=== PATIENT | female | born 1970 | race Caucasian/White ===

== ENCOUNTER 2018-06-16 08:07 | Emergency (ER) | payer OTHER, SELFPAY ==
[2018-06-16 08:09] VITALS: BP 163/82; PULSE 76; RESP 18; TEMP 36.8; O2SAT 99; BMI 40.1
--- NOTE | 2018-06-16 08:11 | EKG12_ITS ---
Test Reason : ABD PAIN Blood Pressure : / mmHG Vent. Rate : 084 BPM Atrial Rate : 084 BPM P-R Int : 150 ms QRS Dur : 092 ms QT Int : 384 ms P-R-T Axes : 069 069 024 degrees QTc Int : 453 ms Normal sinus rhythm Nonspecific ST abnormality Abnormal ECG Confirmed by NELLIE JACINTO, REBEKA ([id number]), newspaper photo editor GHANSHYAM ROE ([id number]) on 06/18/2018 3:22:26 PM Referred By: SHAYLEE Confirmed By:REBEKA BALLARD MD
--- NOTE | 2018-06-16 08:15 | RAD_ITS ---
STUDY: X-RAY CHEST REASON FOR EXAM: Female, 48 years old. Chest pain TECHNIQUE: Single AP portable view of the chest. COMPARISON: 02/21/2016 FINDINGS: The lungs are clear and expanded. There is no demonstrated pleural abnormality. Normal size heart. Normal mediastinum and nav. Normal visualized pulmonary arteries. Normal visualized aortic arch and descending thoracic aorta. Normal visualized thoracic spine. Normal visualized ribs, clavicles, and shoulders. There is no demonstrated abnormality of the visualized soft tissue structures of the upper abdomen. RAD/Chest 1 View (Portable) IMPRESSION: Normal x-ray examination of the chest. Electronically Signed: Jake Corbin DO at 9:08 EST Tel , Service support ,
[2018-06-16 08:37] LABS: Absolute Lymphocyte Count 1.85 X10^3/ul (0.83-4.51); Absolute Neutrophil Count 5.2 X10^3/uL (2.0-7.7); Basophil# 0.03 X10^3/uL; Basophil% 0.4 % (0-1); Eosinophil# 0.16 X10^3/uL; Hematocrit 43.5 % (37-47); Hemoglobin 14.3 g/dl (12.0-15.0); Lymphocyte # 1.85 X10^3/ul (4.0); Lymphocyte % 23.4 % (19-41); Mean Corp Hgb Conc 32.9 g/gl (32-36); Mean Corpuscular Hgb 28.4 pg (27.0-32.0); Mean Corpuscular Volume 86.3 fL (81-99); Mean Platelet Vol. 10.3 fl (6.2-12.0); Monocyte# 0.66 X10^3/uL; Monocyte% 8.3 % (0-10); Neutrophil % 65.6 % (47-70); POSITIVE COUNT NO; POSITIVE DIFFERENTIAL NO; POSITIVE MORPHOLOGY NO; Platelet Count 224 K/mm3 (150-450); RBC Distribution Width CV 13.8 % (11.6-14.6); RBC Distribution Width SD 43.3 fl (35.1-43.9); Red Blood Count 5.04 M/mm3 (4.2-5.4); White Blood Count 7.9 K/mm3 (4.4-11.0)
--- NOTE | 2018-06-16 08:48 | ED.VISSUMM ---
- ER Visit Summary Date of Service: 06/16/18 Chief Complaint: Dizzy History of Present Illness: The patient is a 48 F with dizziness that she describes as a lightheadedness. Her lightheadedness is intermittent and lasts for several seconds. This has been going on for days, but was worse today. She has also had heartburn for 2 weeks. She has pain in her left chest and throat. No fevers. No focal weakness or numbness. No facial droop, speech changes, or vision changes. No other GI symptoms. No other respiratory symptoms. History of diabetes and hypothyroidism. No history of heart disease, PE, or dissection. No history of stroke, malignancy. Physical Examination: Blood pressure 163/82. Otherwise vitals normal. Afebrile. Alert and oriented. Uncomfortable but not toxic or in distress. Head and neck grossly atraumatic and normal. HEENT exam unremarkable. Heart regular rate and rhythm. Lungs clear. Abdomen soft and nontender. Skin appears normal. Extremities show normal inspection. Neurovascular intact x4, symmetric. Cranial nerve testing grossly intact. Normal strength and sensation. Test Results: EKG shows sinus rhythm at a rate of 84. Very minor nonspecific ST changes. No sign of acute ischemia or infarction pattern. Laboratory studies and chest x-ray pending. Emergency Department Course and Treatment: Placed on a monitor, although I have low suspicion for ACS, PE, or dissection. She was not treated with aspirin. I suspect she may have some GI component. She was treated with a GI cocktail. Labs are pending. We will also check a chest x-ray for cardiac and pulmonary evaluation. There is nothing to suggest stroke or intracranial pathology at this point. I do not believe that CT risks outweigh the potential benefits. CBC normal. Glucose 146. Hepatic unremarkable. Lipase normal. Troponin normal. test negative. Chest x-ray unremarkable. On reevaluation, patient did have some improvement. Her orthostatics were negative. Heart score is a 3. PERC negative. Delta troponin was done. I believe the patient is appropriate for outpatient follow-up. She seems to be improving. Her workup here is reassuring. Low risk. Patient agreed. Treatment Plan: Increase omeprazole to twice a day and follow-up with primary care Disposition: Discharged Impression: 1. Dizziness . Epigastric pain This note was generated with [employer] software. It may contain incorrect words, spelling, and punctuation that were not noted in review of the chart prior to signing ED Disposition - Plan for ED Patient: Chief Complaint: Dizziness Referrals: Ever Dee MD [Primary Care Provider] -
[2018-06-16 09:10] LABS: ALB/GLOB Ratio 1.3 RATIO (0.9-2.4); AST(SGOT) 13 U/L (15-37); Alanine Aminotransfer ALT/SGPT 28 U/L (13-56); Albumin, Serum 4.3 g/dL (3.2-5.0); Alkaline Phosphatase 65 U/L (45-117); Anion Gap 10 (5-15); BUN 11 mg/dL (7-18); BUN/Creat Ratio 15.3 RATIO (10-20); Calcium,Total 8.8 mg/dL (8.5-10.1); Chloride 105 mmol/L (98-107); Creatinine, Serum 0.72 mg/dL (0.55-1.02); EST Glomerular Filtration Rate 93 mL/min (>60); Est Glom Filt Rate - Afr Amer 113 mL/min (>60); Estimated Creatinine Clearance 87.85 ml/min; Globulin 3.4 g/dL (2.2-4.2); Glucose 146 mg/dL (74-106); Lipase 75 U/L (73-393); Potassium 3.7 mmol/L (3.5-5.1); Protein, Total 7.7 g/dL (6.4-8.2); Sodium Level 140 mmol/L (136-145)
[2018-06-16 09:18] LABS: Pregnancy, Serum, hCG Quali. NEGATIVE Negative (0-9 Nonpreg)
[2018-06-16] MEDS: Mag Hydrox/Al Hydrox/Simeth 30 ML UDC PO (09:34)
[2018-06-16 09:35] VITALS: BP 136/99; BP 142/73; BP 143/97; PULSE 72; PULSE 75; PULSE 80
[2018-06-16 10:39] VITALS: BP 127/78; PULSE 65; RESP 18; O2SAT 99
[2018-06-16 12:08] VITALS: BP 124/90; PULSE 65; RESP 18; O2SAT 98
--- NOTE | 2018-06-16 12:20 | ED.DEP ---
ED Disposition - Plan for ED Patient: Chief Complaint: Dizziness Instructions: ED Dizziness [facility] Referrals: Ever Dee MD [Primary Care Provider] -
[2018-06-16 12:28] VITALS: BP 104/66; PULSE 65; RESP 18; O2SAT 99
== END 2018-06-16 12:28 | disposition home or self-care (01) ==
LOC: ED 08:35
PROVIDERS: Emergency Provider Emergency Medicine; Family Provider Family Medicine; PCP Family Medicine
DX: R42 Dizziness and giddiness (principal); R10.13 Epigastric pain; E11.9 Type 2 diabetes mellitus without complications; E03.9 Hypothyroidism, unspecified; Z90.49 Acquired absence of other specified parts of digestive tract; Z79.899 Other long term (current) drug therapy
CPT/HCPCS: 36415; 71045; 80053; 83690; 84484; 84703; 85025; 93005; 99284; A4216

== ENCOUNTER → 2018-11-10 16:47 | Outpatient (CLI) | payer OTHER, SELFPAY ==
[2018-11-10 18:09] LABS: Thyroid Stim Hormone (TSH) 2.14 uIU/mL (0.358-3.74)
== END ==
PROVIDERS: Family Provider Family Medicine; PCP Family Medicine; Referring Provider Family Medicine; Visit Provider Nurse Practitioner Adult Health
DX: E03.9 Hypothyroidism, unspecified (principal); R73.01 Impaired fasting glucose
CPT/HCPCS: 36415; 84443

== ENCOUNTER → 2019-07-15 16:52 | Outpatient (CLI) | payer OTHER, SELFPAY ==
--- NOTE | 2019-07-15 16:55 | BI_ITS ---
MAMMOGRAPHY - BILATERAL SCREENING REASON FOR EXAM: Female, 49 years old. Routine annual screening examination. PERTINENT HISTORY: Non-contributory. TECHNIQUE: Digital bilateral breast mariah (3D mammographic acquisition) in the CC and MLO projections. 2-D mediolateral oblique (MLO) and craniocaudad (CC) views of both breasts were obtained. CAD: Full Field Digital Mammography with Computer Added Detection was performed. COMPARISON: Comparison is made with prior study dated October 07, 2016 and January 25, 2015. FINDINGS: Breast Composition: The breasts are almost entirely fatty. There are no dominant masses or suspicious calcifications. No other significant abnormalities are identified. There has been no significant change since the prior study. BI/SCREEN MAMM (CAD) W/MARIAH BILAT IMPRESSION: Stable bilateral screening mammogram. Yearly follow-up mammogram recommended. (A) ASSESSMENT CATEGORY: BIRADS Category 1: Negative. A letter regarding these results will be sent to the patient by the facility within 30 days. Approximately 10% of breast cancers are not detected by mammography. A normal mammogram should not delay biopsy of a clinically suspicious abnormality. [id number] Electronically Signed: Marcelino Obando, at 8:32 EST , Service support ,
== END ==
PROVIDERS: Family Provider Family Medicine; PCP Family Medicine; Referring Provider Obstetrics & Gynecology; Visit Provider Obstetrics & Gynecology
DX: Z12.31 Encounter for screening mammogram for malignant neoplasm of breast (principal)
CPT/HCPCS: 77063; 77067

== ENCOUNTER → 2019-08-05 | Outpatient (CLI) | payer OTHER, SELFPAY ==
[2019-08-10 15:44] LABS: HPV Reflexed? NOT INDICATED
== END | disposition home or self-care (01) ==
LOC: LABSPEC 17:03
PROVIDERS: Family Provider Family Medicine; PCP Family Medicine; Referring Provider Obstetrics & Gynecology; Visit Provider Obstetrics & Gynecology
DX: Z12.4 Encounter for screening for malignant neoplasm of cervix (principal)
CPT/HCPCS: 88175; G0145

== ENCOUNTER → 2020-02-29 08:29 | Outpatient (CLI) | payer OTHER, SELFPAY ==
[2020-02-29 10:17] LABS: ALB/GLOB Ratio 1.3 RATIO (0.9-2.4); AST(SGOT) 5 U/L (15-37); Alanine Aminotransfer ALT/SGPT 17 U/L (13-56); Albumin, Serum 3.7 g/dL (3.2-5.0); Alkaline Phosphatase 61 U/L (45-117); Anion Gap 5 (5-15); BUN 11 mg/dL (7-18); BUN/Creat Ratio 15.5 RATIO (10-20); Calcium,Total 7.9 mg/dL (8.5-10.1); Chloride 105 mmol/L (98-107); Cholesterol 137 mg/dL (200); Creatinine, Serum 0.71 mg/dL (0.55-1.02); EST Glomerular Filtration Rate 94 mL/min (>60); Est Glom Filt Rate - Afr Amer 113 mL/min (>60); Globulin 2.8 g/dL (2.2-4.2); Glucose 139 mg/dL (74-106); High Density Lipoprotein 39 mg/dL; Potassium 4.3 mmol/L (3.5-5.1); Protein, Total 6.5 g/dL (6.4-8.2); Sodium Level 138 mmol/L (136-145); T4 Free Direct 1.13 ng/dL (0.76-1.46); Thyroid Stim Hormone (TSH) 1.77 uIU/mL (0.358-3.74); Triglycerides 82 mg/dL; Very Low Density Lipoprotein 16 mg/dL (5-40)
== END ==
PROVIDERS: PCP Family Medicine; Referring Provider Family Medicine; Visit Provider Family Medicine
DX: R73.01 Impaired fasting glucose (principal); E03.9 Hypothyroidism, unspecified
CPT/HCPCS: 36415; 80053; 80061; 84439; 84443

== ENCOUNTER → 2021-06-08 09:20 | Outpatient (CLI) | payer OTHER, SELFPAY ==
[2021-06-08 12:02] LABS: Absolute Lymphocyte Count 1.53 X10^3/uL (0.83-4.51); Absolute Neutrophil Count 3.9 X10^3/uL (2.0-7.7); Basophil# 0.04 X10^3/uL; Basophil% 0.6 % (0-1); Eosinophil# 0.42 X10^3/uL; Eosinophils% 6.5 % (0-5); Hematocrit 39.6 % (37-47); Hemoglobin 12.8 g/dL (12.0-15.0); Lymphocyte # 1.53 X10^3/ul (0.83-4.51); Lymphocyte % 23.8 % (19-41); Mean Corp Hgb Conc 32.3 g/dL (32-36); Mean Corpuscular Hgb 27.9 pg (27.0-32.0); Mean Corpuscular Volume 86.5 fL (81-99); Monocyte# 0.52 X10^3/uL; Monocyte% 8.1 % (0-10); NRBC Flagged by Analyzer 0 % (0-5); Neutrophil # 3.88 X10^3/uL (2.7-7.7); Neutrophil % 60.5 % (47-70); Platelet Count 205 K/mm3 (150-450); RBC Distribution Width CV 14.1 % (11.6-14.6); Red Blood Count 4.58 M/mm3 (4.2-5.4); White Blood Count 6.4 K/mm3 (4.4-11.0)
[2021-06-08 12:26] LABS: AST(SGOT) 14 U/L (15-37); Alanine Aminotransfer ALT/SGPT 28 U/L (13-56); Albumin, Serum 3.4 g/dL (3.2-5.0); Alkaline Phosphatase 59 U/L (45-117); Anion Gap 6 (5-15); BUN 14 mg/dL (7-18); BUN/Creat Ratio 20.4 RATIO (10-20); Calcium,Total 8.1 mg/dL (8.5-10.1); Chloride 106 mmol/L (98-107); Cholesterol 145 mg/dL (200); Creatinine, Serum 0.69 mg/dL (0.55-1.02); EST Glomerular Filtration Rate 97 mL/min (>60); Est Glom Filt Rate - Afr Amer 117 mL/min (>60); Globulin 3.3 g/dL (2.2-4.2); Glucose 190 mg/dL (74-106); High Density Lipoprotein 39 mg/dL; Protein, Total 6.7 g/dL (6.4-8.2); Sodium Level 138 mmol/L (136-145); T4 Total, Thyroxin 9.2 ug/dL (4.8-13.9); Thyroid Stim Hormone (TSH) 2.06 uIU/mL (0.358-3.74); Triglycerides 68 mg/dL; Very Low Density Lipoprotein 14 mg/dL (5-40)
== END ==
PROVIDERS: PCP Family Medicine; Referring Provider Family Medicine; Visit Provider Registered Nurse
DX: E03.9 Hypothyroidism, unspecified (principal); E11.9 Type 2 diabetes mellitus without complications
CPT/HCPCS: 36415; 80053; 80061; 83036; 84436; 84443; 85025

== ENCOUNTER 2022-04-29 16:02 | Outpatient (RCR) | payer OTHER, SELFPAY | END 2022-05-10 23:59 | LOC: DC 16:02 | PROVIDERS: PCP Nurse Practitioner Family; Referring Provider Nurse Practitioner Family; Visit Provider Nurse Practitioner Family | DX: E11.9 Type 2 diabetes mellitus without complications (principal); E66.9 Obesity, unspecified; Z68.41 Body mass index [BMI] 40.0-44.9, adult | CPT/HCPCS: G0108 ==

== ENCOUNTER → 2022-10-15 | Outpatient (CLI) | payer OTHER, SELFPAY ==
[2022-10-15 12:47] LABS: Microalbumin,Random Urine 9.6 mg/L (NO RANGE EST.); Microalbumin:Creatinine Ratio 5.8 mg/g CRE (<30 mg/g CRE)
[2022-10-15 13:14] LABS: Vitamin D,25 Hydroxy 15.1 ng/mL
[2022-10-15 13:35] LABS: ALB/GLOB Ratio 1.2 RATIO (0.9-2.4); AST(SGOT) 9 U/L (15-37); Alanine Aminotransfer ALT/SGPT 18 U/L (13-56); Alkaline Phosphatase 70 U/L (45-117); Anion Gap 10 (5-15); BUN 11 mg/dL (7-18); BUN/Creat Ratio 15.2 RATIO (10-20); Calcium,Total 8.8 mg/dL (8.5-10.1); Chloride 105 mmol/L (98-107); Cholesterol 162 mg/dL (200); Creatinine, Serum 0.72 mg/dL (0.55-1.02); EST Glomerular Filtration Rate 90 mL/min (>60); Est Glom Filt Rate - Afr Amer 109 mL/min (>60); Globulin 3.4 g/dL (2.2-4.2); Glucose 217 mg/dL (74-106); High Density Lipoprotein 44 mg/dL; Protein, Total 7.4 g/dL (6.4-8.2); Sodium Level 139 mmol/L (136-145); Thyroid Stim Hormone (TSH) 5.14 uIU/mL (0.358-3.74); Triglycerides 102 mg/dL; Very Low Density Lipoprotein 20 mg/dL (5-40)
[2022-10-23 14:19] LABS: HPV APTIMA, High Risk Negative (Negative)
== END | disposition home or self-care (01) ==
PROVIDERS: Student in an Organized Health Care Education/Training Program; PCP Nurse Practitioner Family; Referring Provider Nurse Practitioner Family; Visit Provider Nurse Practitioner Family
DX: Z12.4 Encounter for screening for malignant neoplasm of cervix (principal); E11.9 Type 2 diabetes mellitus without complications
CPT/HCPCS: 36415; 80053; 80061; 82043; 82306; 82570; 84443; 87624; 88175; G0145

== ENCOUNTER → 2022-10-29 | Outpatient (CLI) | payer OTHER, SELFPAY ==
--- NOTE | 2022-10-29 07:20 | BI_ITS ---
MAMMOGRAPHY - BILATERAL SCREENING REASON FOR EXAM: Female, 52 years old. Routine annual screening examination. PERTINENT HISTORY: Non-contributory. TECHNIQUE: Digital bilateral breast mariah (3D mammographic acquisition) in the CC and MLO projections. 2-D mediolateral oblique (MLO) and craniocaudad (CC) views of both breasts were obtained. CAD: Full Field Digital Mammography with Computer Added Detection was performed. COMPARISON: Comparison is made with prior study dated July 15, 2019 and October 07, 2016. FINDINGS: Breast Composition: The breasts are almost entirely fatty. There are no dominant masses or suspicious calcifications. Stable small benign-appearing left axillary lymph nodes. No other significant abnormalities are identified. There has been no significant change since the prior study. BI/SCRN MAMM (CAD)W/MARIAH BILAT IMPRESSION: Stable bilateral screening mammogram. Yearly follow-up mammogram recommended. (A) ASSESSMENT CATEGORY: BIRADS Category 2: Benign. A letter regarding these results will be sent to the patient by the facility within 30 days. Approximately 10% of breast cancers are not detected by mammography. A normal mammogram should not delay biopsy of a clinically suspicious abnormality. [id number] Electronically Signed: Marcelino Obando MD at 8:40 EDT ,
== END | disposition home or self-care (01) ==
LOC: OPBI 07:18
PROVIDERS: PCP Nurse Practitioner Family; Referring Provider Student in an Organized Health Care Education/Training Program; Visit Provider Student in an Organized Health Care Education/Training Program
DX: Z12.31 Encounter for screening mammogram for malignant neoplasm of breast (principal)
CPT/HCPCS: 77063; 77067

== ENCOUNTER → 2023-01-16 | Outpatient (CLI) | payer OTHER, SELFPAY ==
[2023-01-16 14:37] LABS: Hemoglobin A1c 8.6 % (3.8-5.6)
[2023-01-16 14:57] LABS: T4 Free Direct 1.39 ng/dL (0.76-1.46); Thyroid Stim Hormone (TSH) 1.04 uIU/mL (0.358-3.74)
== END | disposition home or self-care (01) ==
LOC: LAB 13:24
PROVIDERS: PCP Nurse Practitioner Family; Referring Provider Nurse Practitioner Family; Visit Provider Nurse Practitioner Family
DX: E11.9 Type 2 diabetes mellitus without complications (principal); E03.9 Hypothyroidism, unspecified
CPT/HCPCS: 36415; 83036; 84439; 84443

== ENCOUNTER → 2023-03-21 | Outpatient (CLI) | payer OTHER, SELFPAY ==
[2023-03-27 17:07] LABS: HPV APTIMA, High Risk Negative (Negative)
== END | disposition home or self-care (01) ==
PROVIDERS: PCP Nurse Practitioner Family; Visit Provider Student in an Organized Health Care Education/Training Program
DX: Z12.4 Encounter for screening for malignant neoplasm of cervix (principal)
CPT/HCPCS: 87624; 88175; G0145

== ENCOUNTER → 2023-04-24 | Outpatient (CLI) | payer OTHER, SELFPAY ==
[2023-04-24 14:41] LABS: T4 Free Direct 1.32 ng/dL (0.76-1.46); Thyroid Stim Hormone (TSH) 1.98 uIU/mL (0.358-3.74)
== END | disposition home or self-care (01) ==
PROVIDERS: PCP Registered Nurse; Referring Provider Nurse Practitioner Family; Visit Provider Nurse Practitioner Family
DX: E03.9 Hypothyroidism, unspecified (principal)
CPT/HCPCS: 84439; 84443

== ENCOUNTER 2024-02-18 07:42 | Day surgery (SDC) | payer OTHER, SELFPAY ==
[2024-02-18] VITALS (8 sets, daily range): BP systolic 114–142; BP diastolic 67–77; PULSE 64–72; RESP 16–18; TEMP 35.9–36.8; O2SAT 95–100; BMI 35.2
--- NOTE | 2024-02-18 07:51 | HP.PCM_ITS ---
[facility] - General General Date of Service: 02/18/24 [facility] Narrative MARCI AGUIRRE, is a 54 F who presents for screening colonoscopy. Patient never had previous colonoscopy. Patient denies any family history of colon cancer. Patient denies any chronic abdominal pain/nausea/vomiting/reflux. Patient has bowel movements daily denies any blood. [facility] Medical History (Updated 02/13/24 @ 13:53 by Chela Butler) Gastric reflux Non-smoker Vaginal yeast infection Sinus infection Cheek mass Hypothyroid Home Medications ?Medication ?Instructions ?Recorded ?Last Taken ?Type blood-glucose meter (OneTouch #1 ea 01/16/23 Unknown Rx Verio Flex Meter) lancets (Accu-Chek Softclix #100 ea 03/19/23 Unknown Rx Lancets) levothyroxine 112 mcg tablet 112 mcg PO DAILY #90 tabs 07/02/23 Unknown Rx blood sugar diagnostic (OneTouch #100 ea 07/31/23 Unknown Rx Verio test strips) losartan 50 mg tablet 50 mg PO DAILY #90 tabs 07/31/23 Unknown Rx tirzepatide 10 mg/0.5 mL 10 mg (0.5 mL) subcut QWEEK #2 mL 09/16/23 02/01/24 Rx subcutaneous pen injector (Christiano) amoxicillin 500 mg capsule 500 mg PO TID 02/17/24 Unknown History Allergy/AdvReac Type Severity Reaction Status Date / Time No Known Allergies Allergy Verified 02/13/24 13:44 Family History Father Diabetes Other Pancreatic cancer Surgical History History of 2 sections History of cholecystectomy Social History (Updated 01/08/24 @ 10:53 by Jannie Ferreira) household members: spouse current occupational status: employed Smoking Status: Never smoker alcohol intake: never substance use type: does not use additional social history: does not take aspirin does take ibuprofen as needed Past Medical/Surgical History Planned Operation Planned Operative Procedure(s): COLONOSCOPY Previous Hospitalizations/Surgeries HX Hospitalizations: No Any Problems With Anesthesia: No You/Your Family Experience Fever (Hyperthermia) With Anes: No Cholinesterase deficiency: No Cardiovascular Hx of Irregular Heartbeat and/or Afib: No Hx Heart Attack: No Hx Congestive Heart Failure: No Hx Hypertension: Yes Hx Internal Defibrillator: No Hx Pacemaker: No Respiratory Hx Chronic Obstructive Pulmonary Disease (COPD): No Hx Asthma: No Hx Emphysema: No Hx Sleep Apnea: No Hx Respiratory Tract Infection/Cold (presently): No Do You Snore Loudly (louder than talking or can be heard): No Do You Often Feel Tired/ Fatigued/ Sleepy Dring Daytime?: No Has Anyone Observed You Stop Breathing During Sleep?: No Result (for STOP score): Negative Smoking Status: Never smoker Gastrointestinal Hx Ulcer: No Neurological Hx Seizures: No Hx Multiple Sclerosis: No Hx Parkinson's Disease: No Hx Head/Neck Injury: No Hx Headaches: No Hx Back Injury/Pain: No Does patient have nerve stimulator: No Reproduction : No Psycho/Social Hx Anxiety: No Hx Depression: No Allergies No Known Allergies Allergy (Verified 02/13/24 13:44) Discharge Is Pt Admitted From a [facility], or a Senior Living: No Who Could Help: After D/C, Where Do you Plan to Go: Return Home Physical Exam Const alert, oriented x3 and no apparent distress HEENT normocephalic and head/scalp atraumatic Resp normal respiratory effort Cardio regular rate GI soft to palpation and non-tender; Negative for non-distended Palpation: Negative for guarding Extremity no clubbing, cyanosis or edema Skin no rashes or lesions noted Neuro CN's II-XII intact bilaterally Psych mental status grossly normal Assessment & Plan Assessment/Plan (1) Encounter for screening for malignant neoplasm of colon: Surgery Risks - Colonoscopy I discussed with the patient the risks of the procedure: Yes Risks Include but are not Limited To: Risks include but are not limited to: Bleeding, perforation requiring further surgery, inability to complete colonoscopy requiring barium enema.
[2024-02-18 08:22] LABS: Internal QC Validated? YES +Cl - CLEAR BKGD; Pregnancy, Urine Negative Negative; Record Kit Lot#,Urine Preg HCG0000772476
[2024-02-18] MEDS: Lactated Ringers 1,000 ML 15 ML IV (08:27)
--- NOTE | 2024-02-18 08:38 | PRE.ANES_ITS ---
ASA Classification* ASA Classification ASA Classification: 2 Assessment & Plan Anesthesia* Anesthesia Assessment Anesthesia Assessment: Discussed sedation and/or anesthesia options, risks, benefits, and alternatives with patient/parents/legal guardian/POA. Questions invited. The patient/parents/legal guardian/POA seems to understand and agrees to proceed with anesthesia plan. Reviewed the physical assessment, medical history, allergy history and patient home medications list prior to surgery/procedure/anesthetic and documented any changes. Performed airway and anesthesia risk assessments. Anesthesia Type Anesthesia Type: MAC (see written pre anesthesia record for full assessment) Anesthesia Focused Assessment* Temperature: 98.2 F Pulse Rate: 72 Blood Pressure: 142/72 Respiratory Rate: 18 Pulse Ox: 100 Airway Assessment Mouth opens: >3 cm Mallampati Score: II Focused Labs Anesthesia Preop lab: CBC WBC 6.4 K/mm3 (4.4-11.0) 06/08/21 09:24 RBC 4.58 M/mm3 (4.2-5.4) 06/08/21 09:24 Hgb 12.8 g/dL (12.0-15.0) 06/08/21 09:24 Hct 39.6 % (37-47) 06/08/21 09:24 Plt Count 205 K/mm3 (150-450) 06/08/21 09:24 CHEMISTRY Potassium 4.0 mmol/L (3.5-5.1) 10/15/22 12:08 Sodium 139 mmol/L (136-145) 10/15/22 12:08 BUN 11 mg/dL (7-18) 10/15/22 12:08 Creatinine 0.72 mg/dL (0.55-1.02) 10/15/22 12:08 Glucose 217 mg/dL (74-106) H 10/15/22 12:08 TSH 1.98 uIU/mL (0.358-3.74) 04/24/23 12:53 COAG Urine Test Negative Negative 02/18/24 08:15 Pre-Assessment Diagnosis/Proposed Procedure Planned Operative Procedure(s): COLONOSCOPY Anesthesia History 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 When Was Last Pacemaker Check QUESTION #4 FULL TEXT: You/Your Family Experience fever (hyperthermia) with Anesthesia Last Oral Intake Last Oral intake: Last Oral Intake NPO since 05:00 02/18/24 08:22 Meds taken in AM with sips of Yes 02/18/24 08:22 water? Meds patient instructed to take am of surgery PONV PONV - glass mold repairer: PONV - glass mold repairer Female Yes 02/13/24 13:48 HX of Motion Sickness No 02/13/24 13:48 HX of N/V After Surgery Yes 02/13/24 13:48 Non-Smoker No 02/13/24 13:48 Duration of Surgery greater No 02/13/24 13:48 than 60 minutes Number of Risk Factors 2 02/13/24 13:48 PONV Score Moderate Risk 02/13/24 13:48 Height & Weight Height & Weight: Anesthesia: Height & Weight Height 5 ft 4 in 02/18/24 08:22 Weight: 93 kg 02/18/24 08:22 Body Mass Index (BMI) 35.2 02/18/24 08:22 Respiratory Assessment Respiratory Assessment - glass mold repairer: Respiratory Tract Infection Hx - glass mold repairer Hx Respiratory Tract Infection No 02/18/24 07:52 STOP Sleep Apnea STOP Sleep Apnea - glass mold repairer: STOP Sleep Apnea - glass mold repairer Hx Hypertension Yes 02/18/24 07:52 Hx Sleep Apnea No 02/18/24 07:52 CPAP BIPAP Do you snore loudly (louder No 02/18/24 07:52 than talking or can be heard Do you often feel tired/ No 02/18/24 07:52 fatigued/ sleepy during daytime? Has anyone observed you stop No 02/18/24 07:52 breathing during sleep? STOP Results Negative 02/18/24 07:52 QUESTION #5 FULL TEXT : Do you snore loudly (louder than talking or can be heard through closed doors)? 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 Specify any problems Hx of Preganancy in last 3 No 02/13/24 13:48 Months Nurse Filling Out Transfusion VLEHMAN 02/13/24 13:48 & Questions: Date: 02/13/24 02/13/24 13:48 Time: 13:54 02/13/24 13:48 Patient unable to answer at this time (ie. confused, unrespo /Reproduction History /Reproductive History - glass mold repairer: /Reproductive Hx- glass mold repairer Hx Now No 02/18/24 07:52 Gestational Age (in weeks): EDC: Hx Hx Para Hx Section SAB No 02/13/24 13:48 Active Medications Active Medications: Current Medications Generic Name Dose Route Start Last Admin Trade Name Freq PRN Reason Stop Dose Admin Lactated Ringer's 1,000 mls @ 15 mls/hr 02/18/24 08:00 02/18/24 08:27 IV 15 mls/hr .Q48H ARTIS Administration PFSH Medical History Gastric reflux Non-smoker Vaginal yeast infection Sinus infection Cheek mass Hypothyroid Home Medications ?Medication ?Instructions ?Recorded ?Last Taken ?Type blood-glucose meter (OneTouch #1 ea 01/16/23 Unknown Rx Verio Flex Meter) lancets (Accu-Chek Softclix #100 ea 03/19/23 Unknown Rx Lancets) levothyroxine 112 mcg tablet 112 mcg PO DAILY #90 tabs 07/02/23 02/18/24 05:00 Rx blood sugar diagnostic (OneTouch #100 ea 07/31/23 Unknown Rx Verio test strips) losartan 50 mg tablet 50 mg PO DAILY #90 tabs 07/31/23 02/18/24 05:00 Rx tirzepatide 10 mg/0.5 mL 10 mg (0.5 mL) subcut QWEEK #2 mL 09/16/23 02/01/24 Rx subcutaneous pen injector (Mounamarjitro) amoxicillin 500 mg capsule 500 mg PO TID 02/17/24 Unknown History Allergy/AdvReac Type Severity Reaction Status Date / Time No Known Allergies Allergy Verified 02/18/24 08:21 Family History Father Diabetes Other Pancreatic cancer Surgical History History of 2 sections History of cholecystectomy Social History household members: spouse current occupational status: employed Smoking Status: Never smoker alcohol intake: never substance use type: does not use additional social history: does not take aspirin does take ibuprofen as needed Review of Systems (Anesthesia) ROS Narrative System reviewed and no additional complaints, except as documented.
[2024-02-18 09:05] LABS: ALB/GLOB Ratio 1.2 RATIO (0.9-2.4); AST(SGOT) 16 U/L (15-37); Alanine Aminotransfer ALT/SGPT 30 U/L (13-56); Albumin, Serum 3.9 g/dL (3.2-5.0); Alkaline Phosphatase 66 U/L (45-117); Anion Gap 4 (5-15); BUN 9 mg/dL (7-18); BUN/Creat Ratio 13.1 RATIO (10-20); Chloride 107 mmol/L (98-107); Cholesterol 161 mg/dL (200); Creatinine, Serum 0.69 mg/dL (0.55-1.02); EST Glomerular Filtration Rate 95 mL/min (>60); Est Glom Filt Rate - Afr Amer 116 mL/min (>60); Estimated Creatinine Clearance 105.42 ml/min; Globulin 3.2 g/dL (2.2-4.2); Glucose 133 mg/dL (74-106); High Density Lipoprotein 42 mg/dL; Protein, Total 7.1 g/dL (6.4-8.2); Sodium Level 139 mmol/L (136-145); T4 Free Direct 1.25 ng/dL (0.76-1.46); Triglycerides 112 mg/dL; Very Low Density Lipoprotein 22 mg/dL (5-40)
--- NOTE | 2024-02-18 09:36 | OP.CCLET_ITS ---
02/18/2024 Ramon Remy Re : Colonoscopy procedure for Janice Veliz Dear Tyra This procedure was performed on Sunday, February 18, 2024. My impressions and recommendations are as follows: Impressions : - The entire examined colon is normal on direct and retroflexion views. - The examined portion of the ileum was normal. - No specimens collected. Recommendations : - Discharge patient to home. - Resume previous diet. - Continue present medications. - Repeat colonoscopy in 10 years for screening purposes. My findings are described in the full procedure note, which is enclosed. If I can be of further assistance, please feel free to contact me at Doctor phone number(s): , Work: . Sincerely, MD Katalina Stanley MD 02/18/2024 9:35:57 AM This report has been signed electronically.
--- NOTE | 2024-02-18 09:36 | OP.COLON_ITS ---
Patient Name: Janice Veliz Procedure Date: 02/18/2024 8:53 AM Date of : 1970 Age: 54 Procedure: Colonoscopy Indications: Screening for colorectal malignant neoplasm Providers: Katalina Keene MD Medicines: Monitored Anesthesia Care Patient Profile: This is a 54 year old female. Last Colonoscopy: none. The patient's first colonoscopy is today. Complications: No immediate complications. Procedure: Pre-Anesthesia Assessment: - Prior to the procedure, a History and Physical was performed, and patient medications and allergies were reviewed. The patient's tolerance of previous anesthesia was also reviewed. The risks and benefits of the procedure and the sedation options and risks were discussed with the patient. All questions were answered, and informed consent was obtained. Prior Anticoagulants: The patient has taken no anticoagulant or antiplatelet agents. ASA Grade Assessment: Per anesthesia. After reviewing the risks and benefits, the patient was deemed in satisfactory condition to undergo the procedure. After I obtained informed consent, the scope was passed under direct vision. Throughout the procedure, the patient's blood pressure, pulse, and oxygen saturations were monitored continuously. The Colonoscope was introduced through the anus and advanced to the terminal ileum. The colonoscopy was performed without difficulty. The patient tolerated the procedure well. The quality of the bowel preparation was good. Scope In: 9:14:10 AM Scope Withdrawal Time 0 hours 9 minutes 6 seconds Scope Out: 9:29:33 AM Total Procedure Duration Time 0 hours 15 minutes 23 seconds Findings: The perianal and digital rectal examinations were normal. The entire examined colon appeared normal on direct and retroflexion views. The terminal ileum appeared normal. Impression: - The entire examined colon is normal on direct and retroflexion views. - The examined portion of the ileum was normal. - No specimens collected. Recommendation: - Discharge patient to home. - Resume previous diet. - Continue present medications. - Repeat colonoscopy in 10 years for screening purposes. Procedure Code(s): --- Professional --- G0121, PT, Colorectal cancer screening; colonoscopy on individual not meeting criteria for high risk Diagnosis Code(s): --- Professional --- Z12.11, Encounter for screening for malignant neoplasm of colon CPT copyright 2021 [employer]. All rights reserved. The codes documented in this report are preliminary and upon pizza baker review may be revised to meet current compliance requirements. MD Katalina Stanley MD 02/18/2024 9:35:57 AM This report has been signed electronically. Number of Addenda: 0 Note Initiated On: 02/18/2024 8:53 AM
--- NOTE | 2024-02-18 09:39 | PCM.POST.ANE ---
Anesthesia: Postop Eval I Current Vital Signs Temperature: 96.7 F Pulse Rate: 68 Blood Pressure: 118/67 Respiratory Rate: 18 Pulse Ox: 95 Assessment Airway patent: Yes Spontaneous unlabored respirations: Yes nausea: No Vomiting: No Anesthesia Complication: No Fluid Hydration Crystalloid volume administer (ml): 500 Total IV fluid infused: 500 Progress Note Anesthesia document: Postop Eval 1 completed: Yes
[2024-02-18 09:52] LABS: Bedside Glucose 132 mg/dL (74-106)
[2024-02-18 11:40] LABS: Microalbumin,Random Urine 8.9 mg/L (NO RANGE EST.); Microalbumin:Creatinine Ratio 24.8 mg/g CRE (<30 mg/g CRE)
--- NOTE | 2024-02-18 12:16 | POSTOPAN2_ITS ---
Anesthesia Postop Eval I Sum Postop Eval Completion status Anesthesia document: Postop Eval 1 completed: Yes Anesthesia Postop Eval I Summary Anesthesia Postop Eval I Summary: Anesthesia Postop Eval I: Assessment Summary Airway patent Yes 02/18/24 10:01 RESTAURANT [email or web address] Spontaneous unlabored Yes 02/18/24 10:01 RESTAURANT SERVER.CSIR respirations Mental status nausea No 02/18/24 10:01 RESTAURANT SERVER.CSIR Vomiting No 02/18/24 10:01 RESTAURANT SERVER.CSIR Anesthesia Postop Eval I: Fluid Summary Crystalloid volume administer 500 02/18/24 10:01 RESTAURANT SERVER.CSIR (ml) Colloids volume administered ( ml) Blood Product volume administered (ml) Total IV fluid infused 500 02/18/24 10:01 RESTAURANT SERVER.CSIR Anesthesia Postop Eval I: Summary Notes Anesthesia Complication No 02/18/24 10:01 RESTAURANT SERVER.CSIR Anesthesia Complication Comment: Post-operative progress note Anesthesia: Postop Eval II Evaluation Mental status: Awake and Calm Pain Level: 0 nausea: No Vomiting: No Complications Anesthesia Complication: No
--- NOTE | 2024-02-18 12:16 | PCM.POSTANE2 ---
Anesthesia Postop Eval I Sum Postop Eval Completion status Anesthesia document: Postop Eval 1 completed: Yes Anesthesia Postop Eval I Summary Anesthesia Postop Eval I Summary: Anesthesia Postop Eval I: Assessment Summary Airway patent Yes 02/18/24 10:01 NEUROLOGY MANAGER.CSIR Spontaneous unlabored Yes 02/18/24 10:01 NEUROLOGY MANAGER.CSIR respirations Mental status nausea No 02/18/24 10:01 NEUROLOGY MANAGER.CSIR Vomiting No 02/18/24 10:01 NEUROLOGY MANAGER.CSIR Anesthesia Postop Eval I: Fluid Summary Crystalloid volume administer 500 02/18/24 10:01 NEUROLOGY MANAGER.CSIR (ml) Colloids volume administered ( ml) Blood Product volume administered (ml) Total IV fluid infused 500 02/18/24 10:01 NEUROLOGY MANAGER.CSIR Anesthesia Postop Eval I: Summary Notes Anesthesia Complication No 02/18/24 10:01 NEUROLOGY MANAGER.CSIR Anesthesia Complication Comment: Post-operative progress note Anesthesia: Postop Eval II Evaluation Mental status: Awake and Calm Pain Level: 0 nausea: No Vomiting: No Complications Anesthesia Complication: No
== END 2024-02-18 10:06 | disposition home or self-care (01) ==
LOC: EN 07:45 → AC 07:48
PROVIDERS: Anesthesiology; Nurse Practitioner Family; PCP Registered Nurse; Referring Provider Registered Nurse; Visit Provider Surgery
PROC: 0DJD8ZZ Inspection of Lower Intestinal Tract, Via Natural or Artificial Opening Endoscopic (ICD-10-PCS; CPT 45378; principal; 2024-02-18 09:10)
DX: Z12.11 Encounter for screening for malignant neoplasm of colon (principal); I10 Essential (primary) hypertension; E03.9 Hypothyroidism, unspecified; Z79.899 Other long term (current) drug therapy; Z90.49 Acquired absence of other specified parts of digestive tract
CPT/HCPCS: 45378; 36415; 80053; 80061; 81025; 82043; 82570; 82962; 84439; 84443; J7120; J2405

== ENCOUNTER → 2024-11-01 | Outpatient (CLI) | payer OTHER, SELFPAY ==
--- NOTE | 2024-11-01 08:45 | BI_ITS ---
EXAM: SCRN MAMM (CAD)W/MARIAH BILAT 11/01/2024 CLINICAL HISTORY: F, Age 54 y/o , ANNUAL TECHNIQUE: Bilateral Diagnostic digital breast tomosynthesis with 2D and 3D images. Computer aided detection. COMPARISON: Prior exam(s) dated 10/29/2022 and 07/15/2019. FINDINGS: TISSUE DENSITY: The breast tissue is almost entirely fatty. Bilateral Breast Mammographic Findings: There are no suspicious masses, suspicious clustered microcalcifications, architectural distortion or secondary signs of malignancy identified in either breast. There are benign-appearing low-density masses in the medial and retroareolar region of the left breast. Benign-appearing round calcifications are seen in the left breast. BI/SCRN MAMM (CAD)W/MARIAH BILAT IMPRESSION: Right Breast: BIRADS 1 NEGATIVE. Left Breast: BIRADS 2 BENIGN FINDING. OVERALL FINAL ASSESSMENT: BIRADS 2 BENIGN FINDING. RECOMMENDATION: Routine annual follow-up in 1 Year A letter with findings and recommendations will be mailed to the patient. Reading Location: [id number]
== END | disposition home or self-care (01) ==
PROVIDERS: PCP Registered Nurse; Referring Provider Advanced Practice Midwife; Visit Provider Advanced Practice Midwife
DX: Z12.31 Encounter for screening mammogram for malignant neoplasm of breast (principal)
CPT/HCPCS: 77063; 77067

== ENCOUNTER → 2025-02-09 | Outpatient (CLI) | payer OTHER, SELFPAY ==
[2025-02-09 11:22] LABS: Creatinine, Urine (random) 104.00 mg/dL (28.00-217.00); Microalbumin,Random Urine < 12.0 mg/L (NO RANGE EST.)
[2025-02-09 11:35] LABS: Cholesterol 151 mg/dL (<=200); Low Density Lipoprotein Calc. 89 mg/dL; Triglycerides 92 mg/dL; Very Low Density Lipoprotein 18 mg/dL (5-40); Vitamin D,25 Hydroxy 19.0 ng/mL (30-100); cholesterol:hdl ratio screen 3.46
[2025-02-09 11:42] LABS: AST(SGOT) 13 U/L (<=31); Alanine Aminotransfer ALT/SGPT 15 U/L (<=34); Albumin, Serum 4.5 g/dL (3.5-5.0); Alkaline Phosphatase 74 U/L (35-104); Anion Gap 13 (5-15); BUN 14 mg/dL (4-19); BUN/Creat Ratio 19.6 RATIO (10-20); Calcium,Total 9.4 mg/dL (7.6-11.0); Carbon Dioxide 24.4 mmol/L (21.0-32.0); Chloride 103 mmol/L (98-108); Globulin 2.5 g/dL (2.2-4.2); Glucose 116 mg/dL (70-99); Potassium 4.3 mmol/L (3.3-5.1)
== END | disposition home or self-care (01) ==
LOC: LAB 09:23
PROVIDERS: PCP Registered Nurse; Referring Provider Nurse Practitioner Family; Visit Provider Nurse Practitioner Family
DX: E11.65 Type 2 diabetes mellitus with hyperglycemia (principal)
CPT/HCPCS: 36415; 80053; 80061; 82043; 82306; 82570; 84439; 84443